=== PATIENT | male | born 1965 | race Caucasian/White ===

== ENCOUNTER → 2020-07-31 | Outpatient (CLI) | payer OTHER ==
--- NOTE | 2020-07-31 12:01 | REP ---
INDICATION: SPRAIN COMPARISON: None. TECHNIQUE: Five views left knee. FINDINGS: There is no evidence of acute fracture, dislocation, or intrinsic bone disease.There is mild chondrocalcinosis. A small tendinous calcification is seen in the distal quadriceps tendon. There is a small joint effusion. There is mild narrowing of the lateral patellofemoral joint. IMPRESSION: No fracture or dislocation. Mild degenerative changes. Small joint effusion. <Electronically signed by Yonas Caba > 07/31/20 [id number]
== END ==
LOC: M WUC 11:08
PROVIDERS: ATTEND Physician Assistant
DX: S83.422A Sprain of lateral collateral ligament of left knee, initial encounter (principal); W18.30XA Fall on same level, unspecified, initial encounter; Y92.009 Unspecified place in unspecified non-institutional (private) residence as the place of occurrence of the external cause

== ENCOUNTER → 2022-04-06 | Outpatient (CLI) | payer OTHER | LOC: M LABSMTC 08:42 | PROVIDERS: ATTEND Anesthesiology | DX: Z01.818 Encounter for other preprocedural examination (principal); Z11.52 Encounter for screening for COVID-19 ==

== ENCOUNTER 2022-04-11 06:58 | Day surgery (SDC) | payer OTHER ==
[~2022-04-11] VITALS: Ht 170.2 cm; Wt 68.0 kg
[~2022-04-11 06:58] MED LIST: LIDOCAINE 1% SDV 5ML VIAL As Ordered ONE
[2022-04-11] MEDS ORDERED: LR 1,000 ML IV SCH (07:00)
[2022-04-11] MEDS ORDERED: PHENYLEPHRINE 2.5% OPHTH SOL 2ML OS SCH (07:15)
[2022-04-11] MEDS ORDERED: TETRACAINE 0.5% OPHTH SOLN 4ML OS SCH (07:15)
[2022-04-11] MEDS ORDERED: CYCLOPENTOLATE 1% OPHTH SOLN 2ML BTL OS SCH (07:15)
[2022-04-11] MEDS ORDERED: FLURBIPROFEN 0.03% OPHTH SOLN 2.5 ML OS SCH (07:15)
[2022-04-11] MEDS ORDERED: MIDAZOLAM INJ 2MG/2ML VIAL As Ordered ONE ×2 (08:04→09:02)
[2022-04-11] MEDS ORDERED: fentaNYL 100 MCG/2 ML INJECTION As Ordered ONE (08:04)
[2022-04-11] MEDS ORDERED: TRYPAN BLUE 0.06 % 2.25 ML OPHTH SYR (VISIONBLUE) As Ordered ONE (08:54)
[2022-04-11 09:35] VITALS: BP 124/87
== END 2022-04-11 09:49 | disposition home or self-care (01) ==
LOC: M SDC 06:58
PROVIDERS: ATTEND Ophthalmology
DX: H25.12 Age-related nuclear cataract, left eye (principal); J44.9 Chronic obstructive pulmonary disease, unspecified; F17.200 Nicotine dependence, unspecified, uncomplicated; Z88.1 Allergy status to other antibiotic agents
CPT/HCPCS: 66984; J2250; J3010

== ENCOUNTER → 2022-04-18 | Outpatient (CLI) | payer OTHER | LOC: M WUC 09:56 | PROVIDERS: ATTEND Physician Assistant | DX: S63.8X1A Sprain of other part of right wrist and hand, initial encounter (principal); W18.30XA Fall on same level, unspecified, initial encounter; Y92.009 Unspecified place in unspecified non-institutional (private) residence as the place of occurrence of the external cause ==

== ENCOUNTER → 2022-04-22 | Outpatient (CLI) | payer OTHER, MEDICAID ==
[2022-04-22 14:34] LABS: C REACTIVE PROTEIN QUANTITATIV < 0.40 MG/DL (<1.0)
[2022-04-22 16:18] LABS: RHEUMATOID FACTOR QUANT < 3.5 IU/ML (<14)
== END ==
LOC: M PLALAB 09:47
PROVIDERS: ATTEND Physician Assistant
DX: M19.031 Primary osteoarthritis, right wrist (principal)